=== PATIENT | male | born 1985 | race Caucasian/White ===

== ENCOUNTER 2024-09-12 10:33 | Outpatient (OUT) | payer MEDICARE, SELFPAY ==
--- OUTSIDE RECORDS SUMMARY | 2024-09-05 14:00 | XMS_ITS | Encounter Summary ---
Author Organization [facility] Address [address] [place] [address] Care Team Providers Care Honey Liquefier Name Role Phone Stevenson Grant MD Primary Care Provider [phone] Reason for Visit * Reason Comments Medicare Annual Wellness Visit Subsequen t Wellness Encounter Details Date Type Department Care Team (Late st Contact Info) Description 09/05/2024 2:00 PM EDT Office Visit [facility] [address] [address] Stevenson Grant MD [address] [place] [phone] Medicare annual wellness visit, subsequent (Primary Dx); Dyslipidemia ; Encounter for long-term (current) use of medications; Prediabetes; Fatigue, unspecified type; Depressed bipolar I disorder (HCC); Seizure disorder (HCC) Social History Tobacco Use Types Packs/Day Years Used Date Smoking Tobacco: Never Smokeless Tobacco: Never B1300 Health Literacy Answer Date Recor ded How often do you need to hav e someone help you when you read instructions, pamphlets, or other written material from your doctor or pharmacy? Never 01/15/2024 Social Connection and Isolat ion Panel [NHANES] Answer Date Recorded In a typical week, how many times do you talk on the phone with family, friends, or neighbors? More than three times a week 01/15/2024 How often do you get togethe r with friends or relatives? Three times a week 01/15/2024 How often do you attend [facility] or roman catholic services? Never 01/15/2024 Do you belong to any clubs o r organizations such as quaker groups, unions, fraternal or athletic groups, or school groups? No 01/15/2024 How often do you attend meet ings of the clubs or organizations you belong to? Never 01/15/2024 Are you , , di vorced, , never , or living with a partner? Living with partner 01/15/2024 AUDIT-C Answer Date Recorded Q1: How often do you have a drink containing alc ohol? Monthly or less 01/15/2024 Q2: How many drinks containi ng alcohol do you have on a typical day when you are drinking? 1 or 2 01/15/2024 Q3: How often do you have si x or more drinks on one occasion? Never 01/15/2024 Overall Financial Resource Strain (CARDIA) Answe r Date Recorded How hard is it for you to pa y for the very basics like food, housing, medical care, and heating? Very hard 01/15/2024 PHQ-2 Answer Date Recorded Patient Health Questionnaire-2 Score 0 09/05/2024 [facility] - Occupational Stress Questionnaire Answer Date Recorded Do you feel stress - tense, restless, nervous, or anxious, or unable to sleep at night because your mind is troubled all the time - these days? To some extent 01/15/2024 Exercise Vital Sign Answer Date Recorde d On average, how many days pe r week do you engage in moderate to strenuous exercise (like a brisk walk)? 7 days 01/15/2024 On average, how many minutes do you engage in exercise at this level? 150+ min 01/15/2024 Hunger Vital Sign Answer Date Recorded Within the past 12 months, y ou worried that your food would run out before you got the money to buy more. Never true 01/15/20 24 Within the past 12 months, t he food you bought just didn't last and you didn't have money to get more. Never true 01/15/2024 PRAPARE - Transportation Answer Date Re corded In the past 12 months, has l ack of transportation kept you from medical appointments or from getting medications? No 03/2023 In the past 12 months, has l ack of transportation kept you from meetings, work, or from getting things needed for daily living? No 01/15/2024 Housing Stability Vital Sign Answer Jorge e Recorded In the last 12 months, was t here a time when you were not able to pay the mortgage or rent on time? No 01/15/2024 Number of Times Moved in the Last Year Not on fi le 01/15/2024 At any time in the past 12 m ont, were you homeless or living in a retirement (including now)? No 01/15/2024 Sex and Gender Information Value Date Recorded Sex Assigned at Not on file Legal Sex Male 6:41 PM EDT Gender Identity Not on file Sexual Orientation Not on file documented as of this encounter Last Filed Vital Signs Vital Sign Reading Time Taken Comments Blood Pressure 110/76 09/05/2024 2:08 PM EDT Pulse 99 09/05/2024 2:08 PM EDT Temperature 36.6 C (97.8 F) 09/05/2024 2:08 PM EDT Respiratory Rate 22 09/05/2024 2:08 PM EDT Oxygen Saturation 97% 09/05/2024 2:08 PM EDT Inhaled Oxygen Concentration - - Weight 80.3 kg (177 lb) 09/05/2024 2:08 PM EDT Height 170.2 cm (5' 7 ) 09/05/2024 2:08 PM EDT Body Mass Index 27.72 09/05/2024 2:08 PM EDT documented in this encounter Functional Status * Over the past 2 weeks, how often have you been bothered by any of the following problems? Question Answer Date of Assessment Author Little interest or pleasure in doing things Not at all 09/05/2024 2:00 PM EDT ANA DAVIS Feeling down, depressed, or hopeless Not at all 08/14 2:00 PM EDT ANA DAVIS Patient Health Questionnaire-2 Score 0 08/14 2:00 PM EDT ANA DAVIS * Question Answer Date of Assessment Author Trouble falling or staying asleep, or sleeping too much Nearly every day 09/05/2024 2:00 PM EDT ANA DAVIS Feeling tired or having alexus le energy Not at all 09/05/2024 2:00 PM EDT ANA DAVIS Poor appetite or overeating Not at all 09/05/2024 2: 00 PM EDT ANA DAVIS Feeling bad about yourself - or that you are a failure or have let yourself or your family down Not at all 09/05/2024 2:00 PM EDT ANA DAVIS Trouble concentrating on things, such as reading the newspaper or watching television Not at all 09/05/2024 2:00 PM EDT ANA DAVIS Moving or speaking so slowly that other people could have noticed? Or the opposite - being so fidgety or restless that you have been moving around a lot more than usual. Not at all 09/05/2024 2:00 PM EDT ANA DAVIS Thoughts that you would be better off or hurting yourself in some way Not at all 09/05/2024 2:00 PM EDT ANA DAVIS Patient Health Questionnaire -9 Score 3 09/05/2024 2:00 PM EDT ANA DAVIS documented as of this encounter Progress Notes * Stevenson Grant MD - 09/05/2024 2:36 PM EDTAssociated Problem(s): Seizure disorder (HCC) No seizures and continue medication. * Stevenson Grant MD - 09/05/2024 2:36 PM EDTAssociated Problem(s): Depressed bipolar I disorder (HCC) Symptoms stable and follow with psychiatry. * Stevenson Grant MD - 09/05/2024 2:30 PM EDTAssociated Problem(s): Medicare annual wellness visit, subsequent Due for labs. Discussed proper diet and regular aerobic exercise. Need aerobic exercise 5-6 days a week for 30 minutes at a time. Smaller portions and limit total calories. Colonoscopy after age 45. Tetanus every 10 years. Advised not to smoke. * Stevenson Grant MD - 09/05/2024 2:00 PM EDT Images from the original note were not included. Subjective Patient ID: Dawit Meek is a 39 y.o. male who presents for Medicare Annual Wellness Visit Subsequent (Wellness/). Presents for medicare annual wellness visit. Patient feels well today. Weight down 4 pounds in the past year. Remains active and walks daily. Doesn't drive and walks all over town. Tries to watch diet and eat healthy. Increased fruits and vegetables. Smaller portions and limits snacking. Tries to limit total daily calories. Due for labs. Review of Systems Constitutional: Negative for fatigue. Respiratory: Negative for cough, shortness of breath and wheezing. Cardiovascular: Negative for chest pain and palpitations. Gastrointestinal: Negative for abdominal pain, diarrhea, nausea and vomiting. Genitourinary: Negative for dysuria. Objective Physical Exam Constitutional: General: He is not in acute distress. Appearance: Normal appearance. HENT: Head: Normocephalic. Right Ear: Tympanic membrane and ear canal normal. Left Ear: Tympanic membrane and ear canal normal. Eyes: Extraocular Movements: Extraocular movements intact. Pupils: Pupils are equal, round, and reactive to light. Cardiovascular: Rate and Rhythm: Normal rate and regular rhythm. Heart sounds: No murmur heard. No friction rub. No gallop. Pulmonary: Breath sounds: Normal breath sounds. No wheezing, rhonchi or rales. Abdominal: General: Bowel sounds are normal. There is no distension. Palpations: Abdomen is soft. Tenderness: There is no abdominal tenderness. There is no guarding or rebound. Musculoskeletal: Left lower leg: No edema. Neurological: Mental Status: He is alert. Assessment/Plan Problem List Items Addressed This Visit Dyslipidemia Relevant Orders Lipid panel Medicare annual wellness visit, subsequent - Primary Due for labs. Discussed proper diet and regular aerobic exercise. Need aerobic exercise 5-6 days a week for 30 minutes at a time. Smaller portions and limit total calories. Colonoscopy after age 45. Tetanus every 10 years. Advised not to smoke. Encounter for long-term (current) use of medications Relevant Orders Basic metabolic panel CBC and differential Hepatic function panel Prediabetes Relevant Orders Hemoglobin A1c Other Visit Diagnoses Fatigue, unspecified type Relevant Orders TSH W/REFLEX TO FT4 documented in this encounter Plan of Treatment Upcoming Encounters Date Type Department Care Team (Late st Contact Info) Description 03/10/2025 2:00 PM EST Office Visit [facility] [address] [place] [address] Stevenson Grant MD [address] [place] [address] Scheduled Orders Name Type Priority Associated Diagnoses Orde r Schedule Hemoglobin A1c Lab Routine Prediabetes Expected: 09/05/2024 (Approximate), Expires: 09/05/2025 Basic metabolic panel Lab Routine Encounter for long-term (current) use of medications Expected: 09/05/2024 (Approximate), Expires: 09/05/2025 CBC and differential Lab Routine Encounter for long-term (current) use of medications Expected: 09/05/2024 (Approximate), Expires: 09/05/2025 Hepatic function panel Lab Routine Encounter for long-term (current) use of medications Expected: 09/05/2024 (Approximate), Expires: 09/05/2025 Lipid panel Lab Routine Dyslipidemia Expected: 09/05/2024 (Approximate), Expires: 09/05/2025 TSH W/REFLEX TO FT4 Lab Routine Fatigue, unspecified type Expected: 09/05/2024 (Approximate), Expires: 09/05/2025 documented as of this encounter Visit Diagnoses Diagnosis Medicare annual wellness visit, subsequent- Primary Dyslipidemia Other and unspecified hyperlipidemia Encounter for long-term (current) use of medications Encounter for long-term (current) use of other medications Prediabetes Other abnormal glucose Fatigue, unspecified type Depressed bipolar I disorder (HCC) Bipolar I disorder, most recent episode (or current) depressed, unspecified Seizure disorder (HCC) Unspecified epilepsy without mention of intractable epilepsy documented in this encounter Additional Health Concerns Assessment Noted Time PHQ-9 Depression Total Score: 3 09/06/19 25 2:00 PM EDT documented as of this encounter Care Teams Honey Liquefier Relationship Specialty Start Date End Date Stevenson Grant MD [address] [place] [phone] PCP - General Family Medicine 07/25/23 documented as of this encounter
--- OUTSIDE RECORDS SUMMARY | 2024-09-12 10:35 | XMS_ITS | Encounter Summary ---
Author Organization [facility] Address [address] [facility] [place] [address] Care Team Providers Care Hostage Negotiator Name Role Phone Stevenson Grant MD Primary Care Provider [phone] Encounter Details Date Type Department Care Team (Latest Contact Info) Description 08/30/2024 Travel Social History Tobacco Use Types Packs/Day Years [...] week 01/15/2024 How often do you attend chur or restoration services? Never 01/15/2024 Do you belong to any clubs o r organizations such as yazdanism groups, unions, fraternal or athletic groups, or [...] Date Recorded Patient Health Questionnaire-2 Score 0 08/30/2024 [facility] - Occupational [...] any time in the past 12 m [facility], were you homeless or living in a fdc (including now)? No 01/15/2024 Sex and Gender Information Value Date Recorded Sex Assigned at Not on file Legal Sex Male 6:41 PM EDT Gender Identity Not on file Sexual Orientation Not on file documented as of this encounter Functional Status * Over the past 2 weeks, how often have you been bothered by any of the following problems? Question Answer Date of Assessment Author Patient Health Questionnaire-2 Score 0 08/13 12:02 PM EDT Mychart, Generic * Little interest or pleasure in doing things Answer Date of Assessment Author Not at all 08/30/2024 12:02 PM EDT Mychart, Generic * Feeling down, depressed, or hopeless Answer Date of Assessment Author Not at all 08/30/2024 12:02 PM EDT Mychart, Generic documented as of this encounter Plan of Treatment Upcoming Encounters Date Type Department Care Team (Late st Contact Info) Description 03/10/2025 2:00 PM EST [facility] [address] [place] [address] Stevenson Grant MD [address] [place] [address] documented as of this encounter Visit Diagnoses Not on filedocumented in this encounter Care Teams Hostage Negotiator Relationship Specialty Start Date End Date Stevenson Grant MD [address] [place] [phone] PCP - General Family Medicine 07/25/23 documented as of this encounter
--- OUTSIDE RECORDS SUMMARY | 2024-09-12 10:35 | XMS_ITS | Clinical Summary ---
Author Organization [facility] Address [address] [place] [facility] [address] Care Team Providers Care Button Sewer Name Role Phone Stevenson Grant MD Primary Care Provider [phone] Allergies No known active allergies Medications OXcarbazepine (Trileptal) 300 MG tablet Take 300 mg by mouth in the morning and 300 mg before bedtime. Active lurasidone (Latuda) 60 MG tablet Take 60 mg by mouth in the morning. Active LORazepam (Ativan) 0.5 MG tablet Take by mouth Active loratadine (Claritin) 10 MG tablet Take 10 mg by mouth Daily Active Active Problems Problem Noted Date Diagnosed Date Medicare annual wellness visit, subsequent 09/05 Assessment & Plan (09/05/2024 2:30 PM EDT): Due for labs. Discussed proper diet and regular aerobic exercise. Need aerobic exercise 5-6 days a week for 30 minutes at a time. Smaller portions and limit total calories. Colonoscopy after age 45. Tetanus every 10 years. Advised not to smoke. Encounter for long-term (current) use of medicat ions 09/05/2024 Prediabetes 09/05/2024 Mild intellectual disabilities 01/16/2024 Idiopathic neuropathy 07/25/2023 Chronic pain of both knees 05/29/2023 Depressed bipolar I disorder 05/29/2023 Assessment & Plan (09/05/2024 2:36 PM EDT): Symptoms stable and follow with psychiatry. Assessment & Plan (01/16/2024 2:13 PM EST): Symptoms stable and follow with psychiatry. Assessment & Plan (07/25/2023 4:52 PM EDT): Recently with worsening symptoms but improved. Follow with psychiatry. Chronic migraine without aura 05/29/2023 Allergic rhinitis due to pollen 05/29/2023 Assessment & Plan (01/16/2024 2:13 PM EST): Symptoms controlled with medication and continue. Assessment & Plan (07/25/2023 4:52 PM EDT): Symptoms controlled with medication and continue. Dyslipidemia 05/29/2023 Gastroesophageal reflux disease 05/29/2023 Arthritis, gouty 05/29/2023 Hypersomnia 05/29/2023 Persistent disorder of initiating or maintaining sleep 05/29/2023 Lumbar disc narrowing 05/29/2023 Mild intermittent asthma without complication Assessment & Plan (01/16/2024 2:14 PM EST): Doing well without inhalers and monitor. Continue with increased activity. Assessment & Plan (07/25/2023 4:52 PM EDT): Doing well without inhalers and monitor. Continue with increased activity. Chronic neck pain 05/29/2023 Neurocardiogenic syncope 05/29/2023 Right inguinal hernia 05/29/2023 Seizure disorder 05/29/2023 Assessment & Plan (09/05/2024 2:36 PM EDT): No seizures and continue medication. Assessment & Plan (01/16/2024 2:14 PM EST): No seizures and continue medication. Assessment & Plan (07/25/2023 4:52 PM EDT): No seizures and continue medication. Encounters Date Type Department Care Team Description 09/05/2024 2:00 PM EDT Office Visit [facility] [address] [place] [address] Stevenson Grant MD Medicare annual wellness visit, subsequent (Primary Dx); Dyslipidemia ; Encounter for long-term (current) use of medications; Prediabetes; Fatigue, unspecified type; Depressed bipolar I disorder (HCC); Seizure disorder (HCC) 09/05/2024 Bamboo flowsheet [facility] [address] [place] [address] Stevenson Grant MD 08/30/2024 Travel 07/14/2024 Travel from Last 3 Months Social History Tobacco Use Types Packs/Day Years Used Date Smoking Tobacco: Never Smokeless Tobacco: Never Tobacco Cessation:Counseling Given: Not Answered B1300 Health Literacy Answer Date Recor ded [...] 01/15/2024 How often do you attend chur ch or zoroastrian services? Never 01/15/2024 Do you belong to any clubs o r organizations such as worship groups, unions, fraternal or athletic groups, or [...] Recorded Patient Health Questionnaire-2 Score 0 09/05/2024 [facility] - Occupational Stress Questionnaire Answer Date Recorded [...] time in the past 12 m [facility], were you homeless or living in a senior care (including now)? No 01/15/2024 Sex and Gender Information Value Date Recorded Sex Assigned at Not on file Legal Sex Male 6:41 PM EDT Gender Identity Not on file Sexual Orientation Not on file Last Filed Vital Signs Vital Sign Reading [...] Mass Index 27.72 09/05/2024 2:08 PM EDT Plan of Treatment Upcoming Encounters Date Type Department Care Team (Late st Contact Info) Description 03/10/2025 2:00 PM EST Office Visit [facility] [address] [place] [address] Stevenson Grant MD [address] [place] [address] Health Maintenance Due Date Last Done Comments Influenza Vaccine (#1) 2024 01/04/2019, 2014 Medicare Annual Wellness (AWV) 09/05/2025 09/05/2024 Insurance MEDICAID [place] [employer] MEDICARE ADVANTAGE Care Teams Button Sewer Relationship Specialty Start Date End Date Stevenson Grant MD [address] [place] [phone] PCP - General Family Medicine 07/25/23
--- OUTSIDE RECORDS SUMMARY | 2024-09-12 10:35 | XMS_ITS | Encounter Summary ---
Author Organization [facility] Address [address] [place] [address] Care Team Providers Care Joy Operator Helper Name Role Phone Stevenson Grant MD Primary Care Provider [phone] Encounter Details Date Type Department Care Team (Late st Contact Info) Description 09/05/2024 [facility]amboo [facility] [address] [place] [address] Stevenson Grant MD [address] [place] [address] Social History Tobacco Use Types Packs/Day Years [...] often do you attend chur ch or scientologist services? Never 01/15/2024 Do you belong to any clubs o r organizations such as restorationist groups, unions, fraternal or athletic groups, or [...] Recorded Patient Health Questionnaire-2 Score 0 09/05/2024 [facility] - Occupational Stress [...] any time in the past 12 m [facility], were you homeless or living in a group home (including now)? No 01/15/2024 Sex and Gender Information Value Date Recorded Sex Assigned at Not on file Legal Sex Male 6:41 PM EDT Gender Identity Not on file Sexual Orientation Not on file documented as of this encounter Plan of Treatment Upcoming Encounters Date Type Department Care Team (Late st Contact Info) Description 03/10/2025 2:00 PM EST Office Visit [facility] [address] [place] [address] Stevenson Grant MD [address] [place] [phone] documented as of this encounter Visit Diagnoses Not on filedocumented in this encounter Additional Health Concerns Assessment Noted Time PHQ-9 Depression Total Score: 3 09/06/19 25 2:00 PM EDT documented as of this encounter Care Teams Joy Operator Helper Relationship Specialty Start Date End Date Stevenson rGant MD [address] [place] [phone] PCP - General Family Medicine 07/25/23 documented as of this encounter
[2024-09-12 11:06] LABS: Hematocrit 43.4 % (42.0-54.0); Hemoglobin 15.0 g/dL (14.0-18.0); Immature Granulocytes Abs Auto 0.02 10^3/uL (0.00-0.03); Immature Granulocytes Pct Auto 0.2 % (0.0-0.5); Lymphocytes Absolute Auto 2.2 10^3/uL (1.2-3.8); Mean Corpuscular HGB Conc 34.6 g/dL (29.9-35.2); Mean Corpuscular Hemoglobin 31.4 pg (25.9-34.0); Mean Corpuscular Volume 91.0 fL (80.0-94.0); Platelet Count 281 10^3/uL (150-450); Red Blood Count 4.77 10^6/uL (4.70-6.10); White Blood Count 8.3 10^3/uL (4.0-11.0)
[2024-09-12 11:41] LABS: Alanine Aminotransferase 62 U/L (16-63); Albumin Globulin Ratio 1.2; Albumin Level 4.2 g/dL (3.4-5.0); Alkaline Phosphatase 110 U/L (46-116); Anion Gap 10.1; Aspartate Amino Transferase 32 U/L (15-37); Blood Urea Nitrogen 16.0 mg/dL (7.0-18.0); Calcium 9.2 mg/dL (8.5-10.1); Carbon Dioxide 31.9 mmol/L (21.0-32.0); Chloride 102 mmol/L (98-107); Cholesterol 228 mg/dL (<=200); Estimated GFR (African America >60 (>=60 mL/min/1.73m^2); Estimated GFR (Non-African Ame >60 (>=60 mL/min/1.73m^2); Globulin 3.6 g/dL; Glucose 93 mg/dL (74-106); HDL Cholesterol 37 mg/dL (40-60); Potassium 4.0 mmol/L (3.5-5.1); Sodium 140 mmol/L (136-145); TSH W/ REFLEX FT4 2.145 uIU/mL (0.358-3.740); Total Protein 7.8 g/dL (6.4-8.2); Triglycerides 294 mg/dL (<=150); VLDL CHOLESTEROL 58.8 mg/dL
== END 2024-09-12 10:34 | disposition home or self-care (01) ==
LOC: LAB 10:33
PROVIDERS: PCP Family Medicine; Visit Provider Family Medicine
DX: R73.03 Prediabetes (principal); Z79.899 Other long term (current) drug therapy; E78.5 Hyperlipidemia, unspecified; R53.83 Other fatigue
CPT/HCPCS: 36415; 80048; 80061; 80076; 83036; 84443; 85025